=== PATIENT | female | born 1935 | race Caucasian/White ===

== ENCOUNTER 2016-07-19 02:34 | Emergency (ER) | payer MEDICARE ==
[2016-07-19] MEDS ORDERED: ONDANSETRON 4 MG/2ML 2 ML VIAL ONE (03:03)
[2016-07-19] MEDS ORDERED: HYDROMORPHONE HCL 0.5 MG/0.5 ML SYRINGE ONE (03:03)
[2016-07-19 03:14] LABS: ABSOLUTE NEUTROPHIL COUNT 107.8 K/mm3 (1.8-7.7); BASO # 7.8 K/mm3 (0.0-0.2); BASO % 4.5 % (0.2-1.0); EOS # 4.5 (0.0-0.5); EOS % 2.6 % (0.9-2.9); HEMOGLOBIN 10.9 gm/l (12.0-16.0); IMM NEUT # 40.4 K/mm3 (0-0.2); IMM NEUT% 23.1 % (0-1); LYMPH # 7.7 (1.0-4.8); LYMPH % 4.4 % (15-45); MEAN CORPUSCULAR HEMOGLOBIN 27.9 pg (27.0-31.0); MEAN CORPUSCULAR HGB CONC 32.1 g/dl (33.0-37.0); MEAN PLATELET VOLUME 10.1 fl (7.4-10.4); MONO # 6.4 (0.0-0.8); MONO % 3.7 % (4-12); NEUT % 61.7 % (43-75); PLATELET COUNT 802 K/mm3 (130-400); RED CELL DISTRIBUTION WIDTH 19.7 % (11.5-14.5)
[2016-07-19 03:23] LABS: INR 1.47; PARTIAL THROMBOPLASTIN TIME 35.6 SECONDS (24.5-33.0); PROTHROMBIN TIME 15.8 SECONDS (9.3-11.4)
[2016-07-19 03:39] LABS: BAND 19 % (0-10); BASOPHIL 6 % (0-1); EOSINOPHIL 2 % (1-3); LYMPHOCYTE 6 % (15-45); MONOCYTE 4 % (4-12); NEUTROPHILS 47 % (43-75); TOTAL CELLS COUNTED 100
[2016-07-19 03:40] LABS: METAMYELOCYTE 4 %
[2016-07-19 03:43] LABS: ANISOCYTOSIS 1+; PLATELET ESTIMATE INCREASED (NORMAL)
--- NOTE | 2016-07-19 07:30 | US ---
Exam: Left lower extremity venous ultrasound COMPARISON: None INDICATION: Left hip pain. History of DVT. FINDINGS: The deep venous system of the left lower extremity was evaluated with color flow, compression, augmentation and spectral analysis. There is focal eccentric nonocclusive thrombus within the popliteal vein reflecting chronic DVT. Nevertheless, the deep venous system of the left lower extremity from the popliteal vein up to the common femoral vein is patent without evidence of acute DVT. Proximal calf veins are patent as well. IMPRESSION: No evidence of acute DVT in the left lower extremity. 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 Preliminary report transmitted to the emergency department from [facility] at 0506 hours 07/19/2016.
== END 2016-07-19 05:36 | disposition home or self-care (01) ==
LOC: ED 02:34
DX: M25.552 Pain in left hip (principal); I10 Essential (primary) hypertension; D47.1 Chronic myeloproliferative disease; Z86.718 Personal history of other venous thrombosis and embolism
CPT/HCPCS: 85025; 85730; 85610; 96375; 99283 ×2; 96374; 93971; J2405; J1170